=== PATIENT | female | born 1975 | race Caucasian/White ===

== ENCOUNTER 2020-06-13 17:08 | Outpatient (CLI) | payer OTHER, BC, SELFPAY ==
--- NOTE | 2020-06-13 17:18 | XR_ITS ---
WS: [id number] Thoracic spine, 3 views, 06/13/2020 Clinical Data: pain and injury Comparison: None. Findings: No compression fractures are seen. The disc heights are normal. XR/XR thoracic spine 3V* [id number] Impression: Negative thoracic spine.
--- NOTE | 2020-06-13 17:18 | XR_ITS ---
WS: [id number] Lumbar spine, 3 views, 06/13/2020 Clinical Data: pain and injury Comparison: None. Findings: No compression fractures or subluxation is seen. No disc space narrowing is seen. The transverse proc esses and SI joints are normal. XR/XR lumbar spine 2-3V* [id number] Impression: Negative lumbar spine.
--- NOTE | 2020-06-13 17:18 | XR_ITS ---
WS: [id number] Cervical spine, 3 views, 06/13/2020 Clinical Data: pain and trauma Comparison: None. Findings: No compression fractures are seen. The disc heights are normal. There is no prevertebral so ft tissue swelling. The odontoid is unremarkable. The soft tissues of the neck and the lung apices ar e normal. XR/XR cervical spine 3V* [id number] Impression: Negative cervical spine.
== END 2020-06-13 17:09 | disposition home or self-care (01) ==
LOC: RAD 17:13
PROVIDERS: Visit Provider Nurse Practitioner
DX: M54.6 Pain in thoracic spine (principal); M54.5 Low back pain; M54.2 Cervicalgia
CPT/HCPCS: 72040; 72072; 72100

== ENCOUNTER → 2020-08-06 15:07 | Outpatient (BNVA) | payer BC, SELFPAY | PROVIDERS: Visit Provider Registered Nurse Neonatal Intensive Care | DX: N39.0 Urinary tract infection, site not specified (principal) | CPT/HCPCS: 81000; 81025 ==

== ENCOUNTER → 2020-08-12 15:00 | Outpatient (BNVA) | payer BC, SELFPAY | PROVIDERS: Visit Provider Obstetrics & Gynecology | DX: N89.8 Other specified noninflammatory disorders of vagina (principal); L74.4 Anhidrosis; N73.0 Acute parametritis and pelvic cellulitis | CPT/HCPCS: 83001; 84146; 84443; 84702; 87491; 87591 ==

== ENCOUNTER → 2020-08-13 14:57 | Outpatient (BNVA) | payer BC, SELFPAY | PROVIDERS: Visit Provider Obstetrics & Gynecology | DX: N91.5 Oligomenorrhea, unspecified (principal) | CPT/HCPCS: 76830 ==

== ENCOUNTER → 2021-03-13 11:52 | Outpatient (BNVA) | payer OTHER, SELFPAY | PROVIDERS: Visit Provider Emergency Medicine | DX: R39.9 Unspecified symptoms and signs involving the genitourinary system (principal); R73.03 Prediabetes; N39.0 Urinary tract infection, site not specified | CPT/HCPCS: 80061; 81000; 83036; 87086 ==

== ENCOUNTER → 2021-06-13 16:02 | Outpatient (BNVA) | payer OTHER, SELFPAY | PROVIDERS: Visit Provider Emergency Medicine | DX: N39.0 Urinary tract infection, site not specified (principal) | CPT/HCPCS: 81000 ==

== ENCOUNTER → 2022-05-02 16:08 | Outpatient (BNVA) | payer OTHER, SELFPAY | PROVIDERS: Visit Provider Emergency Medicine | DX: N39.0 Urinary tract infection, site not specified (principal); L03.116 Cellulitis of left lower limb | CPT/HCPCS: 81000; 87086 ==

== ENCOUNTER → 2022-09-26 12:08 | Outpatient (BNVA) | payer OTHER, SELFPAY | PROVIDERS: Visit Provider Nurse Practitioner Family | DX: R35.0 Frequency of micturition (principal); R39.15 Urgency of urination; G43.909 Migraine, unspecified, not intractable, without status migrainosus; G43.011 Migraine without aura, intractable, with status migrainosus; N10 Acute pyelonephritis | CPT/HCPCS: 81000 ==

== ENCOUNTER → 2022-11-18 10:03 | Outpatient (BNVA) | payer OTHER, SELFPAY | PROVIDERS: Visit Provider Family Medicine | DX: R73.03 Prediabetes (principal); E03.9 Hypothyroidism, unspecified; G47.00 Insomnia, unspecified; M62.838 Other muscle spasm; Z13.220 Encounter for screening for lipoid disorders; Z13.6 Encounter for screening for cardiovascular disorders | CPT/HCPCS: 80053; 80061; 83036; 84439; 84443; 84481 ==

== ENCOUNTER → 2022-12-03 12:53 | Outpatient (BNVA) | payer OTHER, SELFPAY | PROVIDERS: PCP Family Medicine; Visit Provider Family Medicine | DX: G43.909 Migraine, unspecified, not intractable, without status migrainosus (principal); G47.00 Insomnia, unspecified; E03.9 Hypothyroidism, unspecified; M62.838 Other muscle spasm; R30.0 Dysuria; G35 Multiple sclerosis | CPT/HCPCS: 81000; 87086 ==

== ENCOUNTER → 2023-04-15 10:33 | Outpatient (BNVA) | payer OTHER, SELFPAY | PROVIDERS: PCP Family Medicine; Visit Provider Family Medicine | DX: G35 Multiple sclerosis (principal); G47.00 Insomnia, unspecified; E78.00 Pure hypercholesterolemia, unspecified; R73.03 Prediabetes; N92.6 Irregular menstruation, unspecified; Z12.11 Encounter for screening for malignant neoplasm of colon; E03.9 Hypothyroidism, unspecified; N95.1 Menopausal and female climacteric states; L98.9 Disorder of the skin and subcutaneous tissue, unspecified; F51.01 Primary insomnia; Z68.39 Body mass index [BMI] 39.0-39.9, adult; Z79.899 Other long term (current) drug therapy | CPT/HCPCS: 80053; 80061; 83001; 83002; 83036; 83735; 84403; 84439; 84443; 84481; 84703; 85025 ==

== ENCOUNTER 2023-05-12 09:19 | Day surgery (SDC) | payer OTHER, SELFPAY ==
[2023-05-12 09:38] VITALS: BP 136/95; PULSE 94; RESP 18; TEMP 36.6; O2SAT 99
[2023-05-12 09:50] LABS: OR HCG Qualitative Urine Negative (Negative)
[2023-05-12] MEDS: sodium chloride 0.9% 1,000 ML 30 ML IV (10:13)
--- NOTE | 2023-05-12 10:43 | ANES.PREANE2 ---
Pre-Anesthetic Assessment Height/Weight: Height 1.63 m Weight 104.326 kg Temp Pulse Resp BP Pulse Ox O2 Del Method 97.9 F 94 18 136/95 99 Room Air 05/12/23 09:38 05/12/23 09:38 05/12/23 09:38 05/12/23 09:38 05/12/23 09:38 05/12/23 09:38 Preop Diagnosis: GERD, Hematochezia, Screening Operation Date: 05/12/23 10:30 Proposed Procedures p 12510 egd [id number] colon G0105 screen colon H risk Z12.11,K92.2 ,K21.9,K59.09(Not Applicable) - Roger Gibbons DO s Colonoscopy(Not Applicable) - Roger Gibbons DO Was Beta Ema taken within 24 hours: N/A Was Clonidine taken within 24 hours: N/A Last intake: Intake Last Liquid Date 05/11/23 Last Liquid Time 23:30 Last Solid Date 05/11/23 Last Solid Time 21:00 Social No alcohol and No tobacco Exam alert, oriented x 3, clear to auscultation bilaterally and regular rate & rhythm Airway Submandibular: within normal limits Cervical ROM: within normal limits Mallampati: Class III (TMJ) Dentition: full History/ROS No significant history except as noted and No significant complaints Pulmonary None reported CV/HEM None reported None reported Hepatic None reported GI Gastroesophageal Reflux Disease Metabolic Morbid Obesity and Thyroid Disease [facility] [place] Fibromyalgia and Weakness MS Neuropsych Anxiety and Neuropathy Anesthetic Plan ASA status: 3 Anesthesia: Anesthesia Evaluation and MAC Risk of > 500 ml blood loss (7ml/kg in children): No Medications/Allergies Home Medications Medication Instructions Recorded Confirmed Last Taken Type clonazepam 1 mg tablet 0.5 mg PO BID 11/18/22 05/10/23 05/11/23 History gabapentin 300 mg capsule 300 mg PO TID 11/18/22 05/10/23 05/11/23 History ocrelizumab 30 mg/mL intravenous 30 mg IV .TWICE/YEAR 11/18/22 05/10/23 Unknown History solution (Ocrevus) venlafaxine 150 mg 150 mg PO QAM 11/18/22 05/10/23 05/11/23 History capsule,extended release 24 hr levothyroxine 88 mcg tablet 88 mcg PO DAILY 90 days #90 tabs 0905/10/23 05/11/23 Rx amitriptyline 50 mg tablet 50 mg PO .at bedtime 90 days #90 04/15/23 05/10/23 05/11/23 Rx tabs ketoconazole 2 % shampoo 1 applic topical .WEELKLY #120 mL 04/15/23 05/10/23 05/11/23 Rx linaclotide 145 mcg capsule 145 mcg PO DAILY 30 days #30 caps 04/23/23 05/10/23 05/11/23 Rx (Linzess) rizatriptan 10 mg tablet See Rx Instructions .Route 04/26/23 05/10/23 Unknown Rx .COMPLEX #10 tabs Allergies Allergy/AdvReac Type Severity Reaction Status Date / Time sulfamethoxazole Allergy Mild ADR-Itching Verified 05/10/23 10:49 [From Septra] trimethoprim [From Septra] Allergy Mild ADR-Itching Verified 05/10/23 10:49 diphenhydramine Allergy ALGY-Anaphy Verified 05/10/23 10:49 [From Benadryl] laxis Penicillins Allergy ALGY-Difficulty Verified 05/10/23 10:49 Breathing pseudoephedrine Allergy ALGY-Anaphy Verified 05/10/23 10:49 [From Sudafed] laxis Sulfa (Sulfonamide Allergy ALGY-Anaphy Verified 05/10/23 10:49 Antibiotics) laxis tizanidine AdvReac Mild irritabilit Verified 05/10/23 10:49 y Current Medications Generic Name Dose Route Start Last Admin Trade Name Freq PRN Reason Stop Dose Admin Sodium Chloride 1,000 mls @ 30 mls/hr 05/12/23 06:30 05/12/23 10:13 Sodium Chloride 0.9% IV 05/13/23 06:29 30 mls/hr .Q24H NELY Administration PFSH Anesthesia Medical History Multiple sclerosis Prediabetes Surgical History S/P tonsillectomy Family History Grandmother Diabetes maternal Hyperlipidemia maternal Heart disease maternal great Breast cancer, Onset Age: 60 maternal Mother Diabetes Hyperlipidemia Grandfather Stroke maternal Family/Other Breast cancer maternal great aunt, onset 60's Denies family history of Colon cancer Ovarian cancer Clotting disorder Anesthesia complication Bleeding disorder Hypertension Uterine cancer Thyroid disease Social History Smoking and tobacco/nicotine status: never used tobacco/nicotine Alcohol intake: never Substance/Drug Use: never Data Anesthesia Cardiac Studies: No Data to Display
--- NOTE | 2023-05-12 11:02 | W.PM.OPSUD ---
Surgery/Procedure H&P Update DATE OF PROCEDURE: May 12, 2023 DATE H&P PERFORMED: 04/23/23 H&P UPDATE INFORMATION: I have reviewed H&P completed within last 30 days, I have examined patient prior to procedure and No changes to prior documentation PREOP DIAGNOSIS: GERD, Hematochezia, Screening PLANNED PROCEDURE: Operation Date: 05/12/23 10:30 Proposed Procedures p 72514 egd [id number] colon G0105 screen colon H risk Z12.11,K92.2 ,K21.9,K59.09(Not Applicable) - DO linnea Cobb Colonoscopy(Not Applicable) - Roger Gibbons DO
[2023-05-12 11:35] VITALS: BP 122/72; PULSE 75; RESP 20; TEMP 36.4; O2SAT 98
[2023-05-12] MEDS: EPINEPHrine 1 mg/mL INJ XX (11:35)
[2023-05-12 11:50] VITALS: BP 115/84; PULSE 78; RESP 18; O2SAT 99
--- NOTE | 2023-05-12 15:00 | ANE.PACU2 ---
Inpatient post-anesthesia follow up: Vital signs: Temperature 97.5 F Pulse Rate 78 Respiratory Rate 18 Blood Pressure 115/84 Pulse Oximetry 99 Oxygen Delivery Me thod Room Air Oxygen Flow Rate 2 Fraction of Inspir ed Oxygen Hydration adequate: Yes Nausea and vomiting: No Mental status: Baseline Additional Comments: no apparent anesthetic complications noted
== END 2023-05-12 12:14 | disposition home or self-care (01) ==
PROVIDERS: Student in an Organized Health Care Education/Training Program; PCP Family Medicine; Visit Provider Surgery
PROC: 0DJ08ZZ Inspection of Upper Intestinal Tract, Via Natural or Artificial Opening Endoscopic (ICD-10-PCS; CPT 43235; principal; 2023-05-12 10:30)
PROC: 0DJD8ZZ Inspection of Lower Intestinal Tract, Via Natural or Artificial Opening Endoscopic (ICD-10-PCS; CPT 45378; 2023-05-12 10:30)
DX: K92.1 Melena (principal); K21.9 Gastro-esophageal reflux disease without esophagitis; K25.7 Chronic gastric ulcer without hemorrhage or perforation; K63.5 Polyp of colon; M79.7 Fibromyalgia; G35 Multiple sclerosis
CPT/HCPCS: 43239; 43255; 45382; 45385; 76937; 81025; 84703; 88305; 88342; J0171; J2704; J7030

== ENCOUNTER → 2023-07-29 09:20 | Outpatient (BNVA) | payer OTHER, SELFPAY | PROVIDERS: PCP Family Medicine; Referring Provider Family Medicine; Visit Provider Family Medicine | DX: K25.3 Acute gastric ulcer without hemorrhage or perforation (principal); B96.81 Helicobacter pylori [H. pylori] as the cause of diseases classified elsewhere | CPT/HCPCS: 87338 ==